=== PATIENT | male | born 1965 | race Caucasian/White ===

== ENCOUNTER 2021-06-21 02:04 | Day surgery (SDC) | payer BC, SELFPAY ==
[2021-05-29 13:29] VITALS: BMI 29.1
--- NOTE | 2021-06-14 08:28 | PC.NURSE ---
Pt denies any changes in medications or health history, except for Covid positive on 06/03/21. Pt states symptoms were those of a sinus infection and that he is no longer having any symptoms. New surgery date/time and instructions reviewed with pt. Pt denies questions at this time.
--- NOTE | 2021-06-20 16:30 | PM.SD2 ---
Same Day Admit/Disch: HPI History of Present Illness Chief complaint: right inguinal hernia Narrative: Checo Jefferson is a 55 year old male Who has had bulging and discomfort in the right groin area for at least 3 months. This seemed to developed after patient had a coughing spell associated with allergies. It is very uncomfortable and sometimes painful. It is worse with prolonged ambulation and physical exertion. Lying down and sitting tend to help relieve the symptoms. He was seen in the office and found to have a large right inguinal hernia. He is taken to surgery now as an outpatient for repair. 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 Numbness and tingling of right upper extremity Pneumonia Right shoulder pain Rotator cuff tear Seasonal allergies Vision abnormalities Surgical History Surgical History H/O colonoscopy with polypectomy (~02/2018) History of ankle surgery (~1998) right ankle, nerve removed History of appendectomy (~1980) History of hernia repair History of vasectomy (~2001) Family History Family History Sibling Asthma Cerebrovascular accident Grandparent Cerebrovascular accident Mother Family history of chronic obstructive pulmonary disease Father Asthma Family history of gastrointestinal disorder Family history of malignant neoplasm Other Diabetes mellitus Family history of allergic disorder Family history of cardiovascular disease Heart disease Hypertension Social History Social History Smoking packs per day: 1 Smoking cigarettes per day: 20.0 Years smoked: 1 Smoking pack-years: 1.00 Smoking status: Former smoker Smoking end date: 09/16/84 Alcohol intake: current Alcohol use details: Wine nightly, couple glasses to 1 bottle Living arrangements: with family Spiritual care concerns: No Same Day Admit/Disch: Med Pre-admit Medications Home Medications Medication Instructions Recorded Confirmed Type losartan 50 mg tablet 50 mg PO DAILY #90 tablet 02/08/21 06/21/21 Rx amlodipine 10 mg tablet 10 mg PO DAILY #30 tablet 05/25/21 06/21/21 Rx hydrocodone-acetaminophen 1 - 2 tablet PO Q6H PRN #10 tablet 06/21/21 Rx ketorolac 10 mg PO Q6H 4 Days #16 tablet 06/21/21 Rx multivitamin 1 tablet PO DAILY 06/21/21 06/21/21 History Exam Const: General: comfortable, no acute distress, alert and awake HENMT: Head: normocephalic and atraumatic Face and sinus: face asymmetric ( 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) Mouth: Yes Normal oral and palatal mucosa present Eyes: Conjunctivae: conjunctivae normal Pupils: Equal, round and reactive pupils present EOM: EOMs intact bilaterally Neck: Neck: normal visual inspection, no lymphadenopathy and nontender Resp: Effort & Inspection: normal respiratory effort Auscultation: clear to auscultation bilaterally Cardio: Rate: regular rate Rhythm: regular rhythm Heart sounds: no gallops, no murmurs and no rubs GI: Inspection: non-distended GI Palp: Yes Soft to palpation, No Tenderness to palpation present (GI), No Hepatomegaly present and No Splenomegaly present : Male General Exam: Yes hernia ( large right inguinal hernia, mildly tender. No left-sided hernia) and Yes tenderness Penis: Yes normal penis Scrotum: scrotum normal Testes: Testes normal Skin: Lesions: no lesions Rashes: no rashes Neuro: General: no focal motor deficits and CN's II-XI intact bilaterally Cranial nerves: Yes Equal, round and reactive pupils present, Yes Bilaterally
[2021-06-21 10:15] VITALS: BP 131/88; PULSE 84; RESP 16; TEMP 36.2; O2SAT 98
[2021-06-21] MEDS: ACETAMINOPHEN 500 MG TABLET 1000 MG PO (10:31)
[2021-06-21] MEDS: LACTATED RINGERS 1,000 ML 30 ML IV CONT ×3 (10:43→14:16)
[2021-06-21] MEDS: KETOROLAC 15 MG/ML VIAL (*BKC) IV PUSH (10:44)
--- NOTE | 2021-06-21 11:19 | WPDANESEPPF ---
Anes - Initial Pre Proc Eval Procedure: Operation Date: 06/21/21 12:00 Proposed Procedures p Right Inguinal Hernia Repair - Christopher Cheung MD Date/Time: 06/21/21 11:19 Surgeon: Christopher Cheung MD Pre Op Diagnosis: right inguinal hernia Patient Data Age: 55 Gender: M Height: 1.75 m Weight: 88.1 kg Last Vital Signs Temp 36.2 C L 06/21/21 10:15 Pulse 84 06/21/21 10:15 Resp 16 06/21/21 10:15 BP 131/88 06/21/21 10:15 Pulse Ox 98 06/21/21 10:15 Allergies Allergy/AdvReac Type Severity Reaction Status Date / Time diphenhydramine Allergy Mild Difficulty Verified 06/21/21 10:28 Breathing/NAUSEA Home Medications Medication Instructions Recorded Confirmed Type losartan 50 mg tablet 50 mg PO DAILY #90 tablet 02/08/21 06/21/21 Rx amlodipine 10 mg tablet 10 mg PO DAILY #30 tablet 05/25/21 06/21/21 Rx multivitamin 1 tablet PO DAILY 06/21/21 06/21/21 History Patient hx anesthesia problems: none Family hx anesthesia problems: none Results Review: All pre-operative results and documents have been reviewed as part of the pre-operative evaluation. 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 Numbness and tingling of right upper extremity Pneumonia Right shoulder pain Rotator cuff tear Seasonal allergies Vision abnormalities Surgical History Surgical History H/O colonoscopy with polypectomy (~02/2018) History of ankle surgery (~1998) right ankle, nerve removed History of appendectomy (~1980) History of hernia repair History of vasectomy (~2001) Family History Family History Sibling Asthma Cerebrovascular accident Grandparent Cerebrovascular accident Mother Family history of chronic obstructive pulmonary disease Father Asthma Family history of gastrointestinal disorder Family history of malignant neoplasm Other Diabetes mellitus Family history of allergic disorder Family history of cardiovascular disease Heart disease Hypertension Social History Social History Smoking packs per day: 1 Smoking cigarettes per day: 20.0 Years smoked: 1 Smoking pack-years: 1.00 Smoking status: Former smoker Smoking end date: 09/16/84 Alcohol intake: current Alcohol use details: Wine nightly, couple glasses to 1 bottle Living arrangements: with family Spiritual care concerns: No Anes - Eval Final PreProcedure Day of Procedure 06/21/21 11:19 Patient weight: overweight Heart: regular rate and rhythm Lungs: clear to auscultation Airway: Mallampati scale class III Neurological: other (left facial droop) Last oral intake: >/= 8 hours ASA classification: III Emergent: no Anesthetic plan: proceed Anesthesia type and monitoring: general GIVS and standard monitoring Results Review: All pre-operative results and documents have been reviewed as part of the pre-operative evaluation. Informed Consent: The patient's anesthetic plan and its attendant risks and benefits were discussed with the patient/family/POA. Questions were solicited and answers provided to the satisfaction of the patient/family/POA.
--- NOTE | 2021-06-21 12:09 | WPDHPUPDATE1 ---
History and Physical Update Update Date/Time: 06/21/21 12:09 History and Physical has been reviewed, including an updated exam of the patient. There are NO changes in the patient's condition. Risks, benefits, and alternatives have been discussed and questions answered. Patient agrees to proceed with procedure.
[2021-06-21] MEDS: ceFAZolin 2 GM/D5W 50 ML 2 GM/50 ML BAG IVPB (12:28)
--- NOTE | 2021-06-21 13:31 | SUR.OPER ---
Three Xaracoll 100 mg pouches implanted per Dr. Cheung during right inguinal hernia repair.
[2021-06-21 14:10] VITALS: BP 118/83; PULSE 81; RESP 12; O2SAT 93
--- NOTE | 2021-06-21 14:23 | W.PM.PROC2 ---
Procedure Note - Detailed Date of Procedure 06/21/21 Pre-op Diagnosis right inguinal hernia Post-op Diagnosis same Procedure Performed Right inguinal hernia repair with 6 cm Parietex hernia mesh system Surgeon Christopher Cheung MD Childcare Teacher Hallie Lema, KARYN Anesthesia MAC, local (1% lidocaine with epinephrine) and other (Xaracoll bupivacaine collagen matrix) Indications Patient is a 55-year-old man who has had longstanding right inguinal hernia. It has gotten larger and more painful. He was seen in the office and found to have a large right inguinal hernia. He is taken to surgery now for repair. Findings This was a large indirect hernia. There was no sliding hernia. Description of Procedure The patient was taken to surgery and IV sedation was administered. The right groin and genitalia were prepped and draped. The proposed incision was marked on the skin. Local was infiltrated into the skin and the deeper subcutaneous tissues. Incision was made dissection was carried down through the subcutaneous. Crossing veins were cauterized and divided. Dissection was continued through Fernandez's fascia down to the external oblique aponeurosis. The aponeurosis was exposed as was the external ring. Additional local was infiltrated deep to the aponeurosis in the area of the spermatic cord and inguinal canal contents. We then opened the aponeurosis laterally and extended this incision medially through the external ring. The leaves of the aponeurosis were freed from the underlying inguinal canal contents. We then mobilized the cord medially on a Promise drain. The hernia was quite large. It had been bulging through the external ring occupying most of our operative field. Dissection was carried out in the anteromedial aspect of the spermatic cord. A large lipoma was found initially. This was carefully dissected from the spermatic cord and then dissected back to the internal ring. It was carefully cauterized and divided at the internal ring. The lipoma was then discarded. From there we dissected the hernia sac from the spermatic cord. It was quite a large hernia sac. Careful dissection was carried out and the sac was gently freed from the spermatic cord and then dissected back to the internal ring. Cremasteric fibers were divided as we continued this dissection and further mobilized the spermatic cord. Eventually the this hernia sac was dissected back to the internal ring and a high dissection was performed. I then reduced the hernia sac and placed a Ray-Ahsan sponge in the defect. This allowed me to continue some dissection of cremaster fibers and other attachments of the cord so that it was mobilized adequately. Once this was completed, the internal ring was much more its normal size and the area where repair was to be performed was much more easily identified. I then chose a 6 cm Parietex umkumiut. This was full to deform a plug and placed in the internal ring. The edges were sutured to the transversalis fascia. This was done with 3-0 Vicryl suture. Some 3-0 Vicryl were also used to partially close the internal ring. We then cut the patch to the appropriate size and placed it over the inguinal canal floor with the lateral leaves passing beyond the cord. Bupivacaine collagen matrix was then cut and 2 pieces were placed over the patch. The external oblique aponeurosis was then closed over the spermatic cord. The ilioinguinal nerve had been left attached to the cord during the surgery. Once the external oblique was closed, the 0 call was placed over the external oblique aponeurosis. Fernandez's fascia was then closed with interrupted 3-0 Vicryl suture. Bupivacaine collagenase matrix was then placed in the subcutaneous. The skin was loosely approximated with interrupted 4-0 Vicryl subcuticular skin suture. The skin was finally closed with a running 4-0 Monocryl skin suture. The wound was dressed with Exofin surgical adhesive. The patient was then awakene
[2021-06-21 14:40] VITALS: BP 138/87; PULSE 81; RESP 15; O2SAT 96
[2021-06-21 15:10] VITALS: BP 133/81; PULSE 71; RESP 15
[2021-06-21 15:40] VITALS: BP 127/80; PULSE 68; RESP 16
[2021-06-21 16:05] VITALS: BP 140/82; PULSE 70; RESP 16
== END 2021-06-21 16:20 | disposition home or self-care (01) ==
PROVIDERS: PCP Family Medicine; Visit Provider Surgery
PROC: (CPT 49505; principal; 2021-06-21 12:00)
DX: K40.90 Unilateral inguinal hernia, without obstruction or gangrene, not specified as recurrent (principal); I10 Essential (primary) hypertension; E78.5 Hyperlipidemia, unspecified; Z85.848 Personal history of malignant neoplasm of other parts of nervous tissue; Z87.891 Personal history of nicotine dependence
CPT/HCPCS: 49505; A9270; C1781; J0690; J1100; J1170; J1885; J2250; J2405; J2704; J3010; J7120